=== PATIENT | male | born 1960 | race Caucasian/White ===

== ENCOUNTER 2021-12-10 00:13 | Day surgery (SDC) | payer OTHER, SELFPAY ==
[2021-11-30 15:08] VITALS: BMI 39.5
--- NOTE | 2021-12-09 13:35 | WPDANESEPPF ---
Anes - Initial Pre Proc Eval Procedure: Operation Date: 12/10/21 08:00 Proposed Procedures p Screening Colonoscopy - Michael Kumar MD Date/Time: 12/09/21 13:35 Surgeon: Michael Kumar MD Pre Op Diagnosis: neoplasm screening Patient Data Age: 61 Gender: M Height: 1.78 m Weight: 125 kg Allergies Allergy/AdvReac Type Severity Reaction Status Date / Time No Known Allergies Verified 12/10/21 06:45 Home Medications Medication Instructions Recorded Confirmed Type aspirin 81 mg tablet,delayed 81 mg PO DAILY 01/08/20 12/10/21 History release zmgdflxa-ehg-vaznj acid 0.4 1 tablet PO DAILY 01/08/20 12/10/21 History mg-lycopene 300 mcg-lutein 250 mcg tablet omega 4-ppn-xov-fish oil 60 mg-90 2 cap PO DAILY 01/08/20 12/10/21 History mg-500 mg capsule metoprolol succinate 50 mg 50 mg PO DAILY #90 tablet 01/25/21 12/10/21 Rx tablet,extended release 24 hr levothyroxine 100 mcg tablet 100 mcg PO DAILY #90 tablet 01/27/21 12/10/21 Rx tadalafil 10 mg tablet 20 mg PO DAILY PRN #30 tablet 04/07/21 12/10/21 Rx sodium bicarbonate 650 mg tablet See Rx Instructions .ROUTE 08/24/21 12/10/21 Rx .COMPLEX #90 tablet lisinopril 40 mg tablet 40 mg PO DAILY #90 tablet 10/05/21 12/10/21 Rx atorvastatin 20 mg PO DAILY 11/30/21 12/10/21 History Patient hx anesthesia problems: none Family hx anesthesia problems: none Results Review: All pre-operative results and documents have been reviewed as part of the pre-operative evaluation. [facility] Past Medical History Medical History (Updated 12/09/21 @ 13:35 by William Gonzalez DO) Essential (primary) hypertension Hypothyroidism (acquired) Mixed hyperlipidemia Surgical History Surgical History H/O hernia repair 1998 H/O hernia repair 2010 S/P cholecystectomy 2002 Family History Family History Grandparent Family history of malignant neoplasm Father Hypertension Mother Hypertension Social History Social History (Updated 11/23/21 @ 16:25 by Blanche Marsh [facility]) Smoking packs per day: 2 Smoking cigarettes per day: 40.0 Years smoked: 20 Smoking pack-years: 40.00 Tobacco type: cigarettes Alcohol intake: current Alcohol use details: Occasional Substance use: never Substance use type: does not use Living arrangements: with family Additional living arrangements comments: Spouse Additional occupation/education comments: [employer] Spiritual care concerns: No Anes - Eval Final PreProcedure Day of Procedure 12/09/21 13:35 Patient weight: obese Heart: regular rate and rhythm Lungs: clear to auscultation and normal air movement Airway: Mallampati scale class II Neurological: alert and oriented Last oral intake: >/= 8 hours ASA classification: III Emergent: no Anesthetic plan: proceed Anesthesia type and monitoring: general GIVS and standard monitoring Results Review: All pre-operative results and documents have been reviewed as part of the pre-operative evaluation. Informed Consent: The patient's anesthetic plan and its attendant risks and benefits were discussed with the patient/family/POA. Questions were solicited and answers provided to the satisfaction of the patient/family/POA.
[2021-12-10 06:43] VITALS: BP 162/65; PULSE 67; RESP 18; TEMP 36.4; O2SAT 96; BMI 41.8
[2021-12-10] MEDS: LACTATED RINGERS 1,000 ML 150 ML IV CONT (07:08)
--- NOTE | 2021-12-10 07:33 | WPDGICN ---
Assessment and Plan Assessment and plan (1) Encounter for screening colonoscopy: Code(s): Z12.11 - Encounter for screening for malignant neoplasm of colon Status: Acute Assessment and Plan: Patient presents today for screening colonoscopy. Further recommendations will be given after endoscopy. GI Consult Note Consult date/time: 12/10/21 07:33 HPI: Abhinav Mora is a 61 year old male Presents for screening colonoscopy. Patient's current weight appetite bowel movements are normal. He denies abdominal pain. He has had no bleeding. Family history noncontributory. Patient's last colonoscopy was least 15 years ago. He presents today for neoplasia screening. Review of Systems Review of Systems: All systems reviewed & are unremarkable except as noted in HPI and below PMFSH Past Medical History Medical History (Updated 12/10/21 @ 07:34 by Michael Kumar MD) Essential (primary) hypertension Hypothyroidism (acquired) Mixed hyperlipidemia Surgical History Surgical History H/O hernia repair 1998 H/O hernia repair 2010 S/P cholecystectomy 2002 Family History Family History Grandparent Family history of malignant neoplasm Father Hypertension Mother Hypertension Social History Social History (Updated 11/23/21 @ 16:25 by Blanche Marsh CMA) Smoking packs per day: 2 Smoking cigarettes per day: 40.0 Years smoked: 20 Smoking pack-years: 40.00 Tobacco type: cigarettes Alcohol intake: current Alcohol use details: Occasional Substance use: never Substance use type: does not use Living arrangements: with family Additional living arrangements comments: Spouse Additional occupation/education comments: [employer]. Spiritual care concerns: No Meds Home Medications and Allergies Home Medications Medication Instructions Recorded Confirmed Type aspirin 81 mg tablet,delayed 81 mg PO DAILY 01/08/20 12/10/21 History release otmnddyw-jxa-xywzg acid 0.4 1 tablet PO DAILY 01/08/20 12/10/21 History mg-lycopene 300 mcg-lutein 250 mcg tablet omega 0-vqp-del-fish oil 60 mg-90 2 cap PO DAILY 01/08/20 12/10/21 History mg-500 mg capsule metoprolol succinate 50 mg 50 mg PO DAILY #90 tablet 01/25/21 12/10/21 Rx tablet,extended release 24 hr levothyroxine 100 mcg tablet 100 mcg PO DAILY #90 tablet 01/27/21 12/10/21 Rx tadalafil 10 mg tablet 20 mg PO DAILY PRN #30 tablet 04/07/21 12/10/21 Rx sodium bicarbonate 650 mg tablet See Rx Instructions .ROUTE 08/24/21 12/10/21 Rx .COMPLEX #90 tablet lisinopril 40 mg tablet 40 mg PO DAILY #90 tablet 10/05/21 12/10/21 Rx atorvastatin 20 mg PO DAILY 11/30/21 12/10/21 History Allergies Allergy/AdvReac Type Severity Reaction Status Date / Time No Known Allergies Verified 12/10/21 06:45 Vital Signs Vital Signs - 24 hr 12/10/21 06:43 Temperature 97.5 F L Pulse Rate 67 Respiratory Rate 18 Blood Pressure 162/65 H Pulse Oximetry 96 Exam Narrative: Physical exam reveals patient be alert. Vital signs are stable. HEENT exam is unremarkable. Patient is anicteric. Lungs are clear to auscultation and percussion. Heart is without murmur or extra sounds. Abdomen bowel sounds are present soft nontender with no organomegaly. Digital external rectal exam is normal.
[2021-12-10 08:25] VITALS: BP 140/74; PULSE 74; RESP 16; O2SAT 92
[2021-12-10 08:35] VITALS: BP 125/74; PULSE 68; RESP 14; O2SAT 93
[2021-12-10 08:45] VITALS: BP 133/72; PULSE 69; RESP 13; O2SAT 96
== END 2021-12-10 08:52 | disposition home or self-care (01) ==
PROVIDERS: PCP Family Medicine; Visit Provider Internal Medicine Gastroenterology
PROC: 0DJD8ZZ Inspection of Lower Intestinal Tract, Via Natural or Artificial Opening Endoscopic (ICD-10-PCS; CPT 45378; principal; 2021-12-10 08:00)
DX: Z12.11 Encounter for screening for malignant neoplasm of colon (principal); E03.9 Hypothyroidism, unspecified; E78.2 Mixed hyperlipidemia; F17.210 Nicotine dependence, cigarettes, uncomplicated; Z79.82 Long term (current) use of aspirin; I10 Essential (primary) hypertension
CPT/HCPCS: 45378; J2704; J7120

== ENCOUNTER 2024-03-07 11:41 | Outpatient (CLI) | payer OTHER, SELFPAY ==
[2024-03-07 14:33] LABS: Prostate Specific Antigen 0.6 ng/mL (< OR = 4.0); Total Triiodothyronine (T3) 1.08 NG/ML (0.97-1.69)
[2024-03-07 14:41] LABS: Free T4 Free Thyroxine 0.98 ng/mL (0.78-2.19)
== END 2024-03-07 11:42 | disposition home or self-care (01) ==
LOC: ANHGOSHLAB 11:42
PROVIDERS: PCP Emergency Medicine; Visit Provider Emergency Medicine
DX: Z12.5 Encounter for screening for malignant neoplasm of prostate (principal); E03.9 Hypothyroidism, unspecified
CPT/HCPCS: 36415; 84153; 84439; 84443; 84480; G0103

== ENCOUNTER 2024-08-01 08:00 | Outpatient (RCR) | payer OTHER, SELFPAY ==
--- NOTE | 2024-08-01 08:52 | PTOPEVDC ---
Assessment and note entered by Mag Chavis, PT, DPT Thank you for referring Abhinav Mora to [facility].? An evaluation has been completed. No further treatment is needed. Evaluation Information Assessment Status Evaluation Diagnosis R knee pain ICD-10 Condition Codes (PT) M25.561 Subjective Information Pt states he is waiting to get his knee replaced. He states he needs to loose weight in order to get approved for his procedure. He states he has mild to moderate knee pain all the time. He states he gets increased pain when he is less mobile, or too mobile. He states he is favoring his R side and is starting to get L hip pain. Pt is retired. Reported Pain Level Pain Score 3: Self Report Assessment PT Clinical Summary Pt evaluated today with a diagnosis of R knee pain , he is awaiting a TKA. He demonstrate good gross and functional strength with pain reports being the only limitations. He demonstrates 0-6-115 deg of ROM. He was education in a HEP to complete until he can get approved for his knee replacement . He will complete his HEP independently. Plan of Care Interventions Therapeutic Activities,Therapeutic Exercise PT Services Indicated No Treatment Frequency and eval and d/c Duration
== END 2024-08-02 13:31 | disposition home or self-care (01) ==
LOC: ANHGOSHPT 08:00
PROVIDERS: PCP Emergency Medicine; Visit Provider Emergency Medicine
DX: M17.11 Unilateral primary osteoarthritis, right knee (principal)
CPT/HCPCS: 97110; 97161

== ENCOUNTER 2024-12-27 09:47 | Outpatient (CLI) | payer OTHER, SELFPAY ==
--- OUTSIDE RECORDS SUMMARY | 2024-12-27 10:34 | XMS_ITS | Clinical Summary ---
Author Organization [facility] Address [address] [facility] [place] [address] Care Team Providers Care Global Lead Name Role Phone Adilson Castelan MD Primary Care Provider [phone] Allergies No known active allergies Medications lisinopril-hydr oCHLOROthiazide (ZESTORETIC) 10-12.5 mg tablet Take 1 Tablet by mouth daily. 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 Active simvastatin (ZOCOR) 20 mg tablet Take 20 mg by mouth late in the day. Active metoprolol succinate (TOPROL XL) 50 mg Extended Release 24 hour tablet Take 50 mg by mouth daily. Active omega-3 fatty acids-fish oil 300-1,000 mg Capsule Take 2 Capsules by mouth daily. Active glucosamine-cho ndroitin (ARTHX DS) 500-400 mg Capsule Take 2 Capsules by mouth daily. Active multivitamin (DAILY-GLORIA) tablet Take 1 Tablet by mouth daily. Active aspirin (ECOTRIN EC) 81 mg Tablet, Delayed Release (E.C.) Take 81 mg by mouth daily. Active Active Problems Problem Noted Date Diagnosed Date Leukemoid reaction 08/10/2017 Obesity (BMI 35.0-39.9 without comorbidity) 07/22 Family History Medical History Relation Name Comments Healthy Brother No Known Problems Father No Known Problems Mother Healthy Sister 1 Healthy Sister 2 Relation Name Status Comments Brother Alive Father Alive Mother Alive Sister 1 Alive Sister 2 Alive Social History Tobacco Use Types Packs/Day Years Used Date Smoking Tobacco: Former Cigarettes 2 20 0 08/10/1979 - 08/10/1999 Alcohol Use Standard Drinks/Week Comments Yes 0 (1 standard drink = 0.6 oz pur e alcohol) occasional Sex and Gender Information Value Date Recorded Sex Assigned at Not on file Legal Sex Male 3:18 PM CDT Gender Identity Not on file Sexual Orientation Not on file Last Filed Vital Signs Vital Sign Reading Time Taken Comments Blood Pressure 178/78 08/23/2017 3:35 PM CDT Pulse 67 08/23/2017 3:35 PM CDT Temperature 37 C (98.6 F) 08/23/2017 3:35 PM CDT Respiratory Rate 18 08/23/2017 3:35 PM CDT Oxygen Saturation - - Inhaled Oxygen Concentration - - Weight 138 kg (304 lb 3.2 oz) 08/23/2017 3:35 PM CDT Height 177.8 cm (5' 10 ) 08/23/2017 3:35 PM CDT Body Mass Index 43.65 08/23/2017 3:35 PM CDT Plan of Treatment Health Maintenance Due Date Last Done Comments DTAP/TDAP/TD VACCINES (1 - Tdap) 1978 COLORECTAL SCREENING 2004 Colorectal Cancer Screening 2004 FIT-DNA Q 3 years 2004 FIT/FOBT Q 1 year 2004 Flex Sig/CT Colonography Q 5 years 2004 PNEUMOCOCCAL VACCINE 65+ YEARS (1 of 1 - PCV) 06/16/20 09 ZOSTER VACCINE (1 of 2) 2009 INFLUENZA VACCINE (#1) 2024 RSV VACCINE (60+ or ) (1 - 1-dose 75+ series) 2034 Insurance [facility] [id number] Care Teams Global Lead Relationship Specialty Start Date End Date Adilson Castelan MD [address] [place] [phone] PCP - General Family Practice 08/10/17
[2024-12-27 13:54] LABS: Hematocrit 44.9 % (42.0-52.0); Hemoglobin 15.3 g/dL (14.0-18.0); Mean Corpuscular HGB Conc 34.1 g/dl (32-36); Mean Corpuscular Hemoglobin 31.2 pg (26-34); Mean Corpuscular Volume 91.4 fl (80-100); Mean Platelet Volume 9.6 fl (7.4-10.4); Platelet Count Result 284 k/mm3 (150-375); Red Blood Count 4.91 M/mm3 (4.6-6.20); White Blood Count 13.1 K/mm3 (4.5-10.0)
[2024-12-27 14:29] LABS: Alanine Aminotransferase 20 U/L (6-50); Albumin Level 4.3 g/dL (3.5-5.1); Alkaline Phosphatase 46 U/L (38-126); Anion Gap 7 mmol/L (4-12); Aspartate Amino Transferase 32 U/L (17-59); Bilirubin,Total 0.8 mg/dL (0.2-1.3); Blood Urea Nitrogen 12 mg/dL (9-20); Calcium 8.9 mg/dL (8.4-10.2); Carbon Dioxide 31 mmol/L (22-30); Chloride 92 mmol/L (98-107); Cholesterol 132 mg/dL (0-200); Estimated Glomerular Filt Rate > 60; Glucose 83 mg/dL (65-110); HDL Direct 39 mg/dL; Potassium 4.5 mmol/L (3.4-5.0); Sodium 130 mmol/L (137-145); Triglycerides 90 mg/dL (<150)
[2024-12-27 14:39] LABS: LDL Cholesterol Direct 79 mg/dL
[2024-12-27 14:59] LABS: Prostate Specific Antigen 0.7 ng/mL (< OR = 4.0)
[2024-12-27 15:03] LABS: Hemoglobin A1C 5.3 % (<5.7)
== END 2024-12-27 09:48 | disposition home or self-care (01) ==
LOC: ANHGOSHLAB 09:48
PROVIDERS: PCP Nurse Practitioner Family; Visit Provider Nurse Practitioner Family
DX: E78.2 Mixed hyperlipidemia (principal); I10 Essential (primary) hypertension; R73.03 Prediabetes; E03.9 Hypothyroidism, unspecified; E66.9 Obesity, unspecified; Z68.38 Body mass index [BMI] 38.0-38.9, adult; H93.19 Tinnitus, unspecified ear; H91.90 Unspecified hearing loss, unspecified ear; M17.11 Unilateral primary osteoarthritis, right knee; M17.12 Unilateral primary osteoarthritis, left knee; L40.8 Other psoriasis
CPT/HCPCS: 36415; 80053; 80061; 83036; 84153; 84443; 85027; G0103

== ENCOUNTER 2024-12-31 12:46 | Outpatient (CLI) | payer OTHER, SELFPAY ==
--- OUTSIDE RECORDS SUMMARY | 2024-12-31 13:32 | XMS_ITS | Clinical Summary ---
Author Organization [facility] Address [address] [place] [address] Care Team Providers Care Hand Tube Winder Name Role Phone Adilson Castelan MD Primary Care Provider [phone] Allergies No known active allergies Medications lisinopril-hydr oCHLOROthiazide (ZESTORETIC) 10-12.5 mg tablet Take 1 Tablet by mouth daily. 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
== END 2024-12-31 12:47 | disposition home or self-care (01) ==
LOC: ANHAUDASC 12:47
PROVIDERS: PCP Nurse Practitioner Family; Visit Provider Nurse Practitioner Family
DX: H93.13 Tinnitus, bilateral (principal); H90.3 Sensorineural hearing loss, bilateral
CPT/HCPCS: 92557; 92567

== ENCOUNTER 2025-01-23 07:01 | Outpatient (CLI) | payer OTHER, SELFPAY ==
--- NOTE | ~2025-01-23 | US_ITS ---
EXAMINATION: US aorta [facility] DATE: 01/23/2025 07:57 INDICATION: Abdominal aortic aneurysm screening. TECHNIQUE: Grayscale, color Doppler, and pulsed Doppler images of the aorta and common iliac arteries were obtained. COMPARISON: CT abdomen 10/02/2004 FINDINGS: The aorta is normal in caliber. The right common iliac artery is normal in caliber. The left common i liac artery is normal in caliber. IMPRESSION: 1. No abdominal aortic aneurysm. 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
--- OUTSIDE RECORDS SUMMARY | 2025-01-23 07:04 | XMS_ITS | Clinical Summary ---
Author Organization [facility] Address [address] [place] [address] Care Team Providers Care Edge Beader Name Role Phone Adilson Castelan MD Primary Care Provider [phone] Allergies No known active allergies Medications lisinopril-hydr oCHLOROthiazide (ZESTORETIC) 10-12.5 mg tablet Take 1 Tablet by mouth daily. 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 Active simvastatin (ZOCOR) 20 mg tablet Take [...] Colonography Q 5 years 2004 PNEUMOCOCCAL VACCINE 50+ YEARS (1 of 1 - PCV) 06/16/20 09 ZOSTER VACCINE (1 of 2) 2009 INFLUENZA VACCINE (#1) 2024 RSV VACCINE (60+ or ) (1 - 1-dose 75+ series) 2034 Insurance [facility] [id number] Care Teams Edge Beader Relationship Specialty Start Date End Date Adilson Castelan MD [address] [place] [phone] PCP - General Family Practice 08/10/17
== END 2025-01-23 07:02 | disposition home or self-care (01) ==
PROVIDERS: PCP Nurse Practitioner Family; Visit Provider Nurse Practitioner Family
DX: Z87.891 Personal history of nicotine dependence (principal)
CPT/HCPCS: 76706

== ENCOUNTER 2025-03-27 13:50 | Outpatient (CLI) | payer OTHER, SELFPAY ==
--- NOTE | ~2025-03-27 | XR_ITS ---
XR knee RT min 4V Ordering provider: Angelique Post APRN History: . M17.0 - Bilateral primary osteoarthritis of knee . Comparison: None. FINDINGS: BONES: No acute fracture or dislocation. JOINT SPACES: Moderate Narrowing of the medial compartment. Marginal osteophytes are noted. SOFT TISSUES: Normal. IMPRESSION: No acute osseous abnormality right knee. Moderate to severe osteoarthritic changes. Reviewed, dictated and finalized at location A.
--- OUTSIDE RECORDS SUMMARY | 2025-03-27 13:58 | XMS_ITS | Clinical Summary ---
Author Organization [facility] Address [address] [place] [address] Care Team Providers Care Screen Printing Loader Unloader Name Role Phone Adilson Castelan MD Primary Care Provider [phone] Allergies No known active allergies Medications lisinopril-hydr oCHLOROthiazide (ZESTORETIC) 10-12.5 mg tablet Take 1 Tablet by mouth daily. 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 Active simvastatin (ZOCOR) 20 mg tablet Take [...] (1 - 1-dose 75+ series) 2034 Insurance [facility] [id number] Care Teams Screen Printing Loader Unloader Relationship Specialty Start Date End Date Adilson Castelan MD [address] [place] [phone] PCP - General Family Practice 08/10/17
== END 2025-03-27 13:51 | disposition home or self-care (01) ==
PROVIDERS: PCP Nurse Practitioner Family; Visit Provider Nurse Practitioner Family
DX: M17.0 Bilateral primary osteoarthritis of knee (principal)
CPT/HCPCS: 73564

== ENCOUNTER 2025-04-08 14:25 | Outpatient (CLI) | payer OTHER, SELFPAY ==
--- OUTSIDE RECORDS SUMMARY | 2025-04-08 14:30 | XMS_ITS | Clinical Summary ---
Author Organization [facility] Address [address] [place] [address] Care Team Providers Care Field Collector Name Role Phone Adilson Castelan MD Primary Care Provider [phone] Allergies No known active allergies Medications lisinopril-hydr oCHLOROthiazide (ZESTORETIC) 10-12.5 mg tablet Take 1 Tablet by mouth daily. 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 Active simvastatin (ZOCOR) 20 mg tablet Take [...] (1 - 1-dose 75+ series) 2034 Insurance [facility] [id number] Care Teams Field Collector Relationship Specialty Start Date End Date Adilson Castelan MD [address] [place] [phone] PCP - General Family Practice 08/10/17
== END 2025-04-08 14:26 | disposition home or self-care (01) ==
LOC: ANHGOSHLAB 14:26
PROVIDERS: PCP Nurse Practitioner Family; Visit Provider Nurse Practitioner Family
DX: Z01.83 Encounter for blood typing (principal)
CPT/HCPCS: 36415; 86900; 86901

== ENCOUNTER 2025-04-17 00:58 | Day surgery (SDC) | payer OTHER, SELFPAY ==
[2025-04-07 13:18] VITALS: BMI 36.6
--- OUTSIDE RECORDS SUMMARY | 2025-04-17 01:02 | XMS_ITS | Clinical Summary ---
Author Organization [facility] Address [address] [place] [address] Care Team Providers Care Concrete Mixer Name Role Phone Adilson Castelan MD Primary Care Provider [phone] Allergies No known active allergies Medications lisinopril-hydr oCHLOROthiazide (ZESTORETIC) 10-12.5 mg tablet Take 1 Tablet by mouth daily. 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 Active simvastatin (ZOCOR) 20 mg tablet Take [...] 3:35 PM CDT Height 177.8 cm (5' 10) 08/23/2017 3:35 PM CDT Body Mass Index [...] - 1-dose 75+ series) 2034 Insurance [facility] [id number] Care Teams Concrete Mixer Relationship Specialty Start Date End Date Adilson Castelan MD [address] [place] [phone] PCP - General Family Practice 08/10/17
[2025-04-17 06:17] VITALS: BP 147/64; PULSE 54; RESP 20; TEMP 36.7; O2SAT 96; BMI 37.0
[2025-04-17] MEDS: LACTATED RINGERS 1,000 ML 150 ML IV CONT (06:31)
--- NOTE | 2025-04-17 07:15 | P.PNAN_ITS ---
Anes - Initial Pre Proc Eval Procedure: Operation Date: 04/17/25 07:30 Proposed Procedures p Colonoscopy - uLdin Rader MD Date/Time: 04/17/25 07:15 Surgeon: Ludin Rader MD Pre Op Diagnosis: Personal hx of colon polyps Patient Data Age: 64 Gender: M Height: 1.78 m Weight: 117 kg Last Vital Signs Temp 98.0 F 04/17/25 06:17 Pulse 54 L 04/17/25 06:17 Resp 20 04/17/25 06:17 BP 147/64 H 04/17/25 06:17 Pulse Ox 96 04/17/25 06:17 O2 Del Method Room Air 04/17/25 06:17 Allergies Allergy/AdvReac Type Severity Reaction Status Date / Time No Known Allergies Allergy Verified 04/17/25 06:22 Home Medications ?Medication ?Instructions ?Recorded ?Confirmed ?Type aspirin 81 mg tablet,delayed 81 mg PO DAILY 01/08/20 04/17/25 History release (Adult Low Dose Aspirin) aufjjysl-rrv-nyyvt acid 0.4 1 tablet PO DAILY 01/08/20 04/17/25 History mg-lycopene 300 mcg-lutein 250 mcg tablet (Centrum Silver) omega 7-mag-gsg-fish oil 60 mg-90 2 cap PO DAILY 01/08/20 04/17/25 History mg-500 mg capsule (Fish Oil) lisinopril 40 mg tablet 40 mg PO DAILY #90 tabs 09/30/24 04/17/25 Rx tirzepatide (weight loss) 15 15 mg (0.5 mL) subcut WEEKLY #2 mL 12/02/24 04/07/25 Rx mg/0.5 mL subcutaneous pen injector (Zepbound) levothyroxine 100 mcg tablet See Rx Instructions .Route 12/26/24 04/17/25 Rx .COMPLEX #90 tabs atorvastatin 20 mg tablet See Rx Instructions .Route 01/20/25 04/17/25 Rx .COMPLEX #90 tabs metoprolol succinate 50 mg See Rx Instructions .Route 01/20/25 04/17/25 Rx tablet,extended release 24 hr .COMPLEX #90 tabs meloxicam 15 mg tablet 15 mg PO DAILY #90 tabs 02/18/25 04/17/25 Rx amlodipine 10 mg tablet 10 mg PO DAILY #90 tabs 03/27/25 04/17/25 Rx Patient hx anesthesia problems: none Family hx anesthesia problems: none Results Review: All pre-operative results and documents have been reviewed as part of the pre- operative evaluation. [facility] Past Medical History Medical History Left knee DJD Primary osteoarthritis of right knee Encounter for weight management Subcutaneous cyst Sebaceous cyst [place] Osteoarthritis of right knee Screening for prostate cancer Renal function impairment with nsaids Encounter for screening colonoscopy Hyponatremia Morbid obesity with BMI of 40.0-44.9, adult Morbid (severe) obesity due to excess calories Elevated glucose level History of stress test Essential (primary) hypertension Hypothyroidism (acquired) Mixed hyperlipidemia Surgical History Surgical History S/P cholecystectomy (~2002) H/O hernia repair (~2010) H/O hernia repair (~1998) Family History Family History Grandparent Family history of malignant neoplasm Father Hypertension Mother Hypertension Social History Social History Social History: Caffeine-soda Smoking packs per day: 2 Smoking cigarettes per day: 40.0 Years smoked: 20 Smoking pack-years: 40.00 Smoking status: Former smoker Tobacco type: cigarettes Smoking end date: 11/20/98 Alcohol intake: current Drinks per week: 1 Alcohol use details: Occasional Substance use: former Substance use type: does not use Other substance usage details: Gummies Do You Feel Safe in your Home?: Yes Lack of Transportation: No Lack of Food: Never True Current Housing: I Have Housing Concerned About Future Housing: No Difficulty Paying Gas/Electric Bills: No Difficulty Paying for Meds: No Currently Unemployed: No Education: High School Diploma/GED Difficulty w/ Childcare or Family Care: No Living arrangements: with family Additional living arrangements comments: Spouse Occupation/Education: occupation Additional occupation/education comments: [employer] Spiritual care concerns: No Anes - Eval Final PreProcedure Day of Procedure 04/17/25 07:15 Patient weight: obese Heart: regular rate and rhythm Lungs: clear to auscultation Airway: Mallampati scale class II Neurological: alert and oriented Last oral intake: >/= 8 hours ASA classification: III Emergent: no Anesthetic plan: proceed Anesthesia type and monitoring: general GIVS and standard monitoring Results Review: All pre-operative results and documents have been reviewed as part of the pre- operative evaluation. Informed Consent: The patient's anesthetic plan and its attendant risks and benefits were discussed with the patient/family/POA. Questions were solicited and answers p rovided to the satisfaction of the patient/family/POA.
--- NOTE | 2025-04-17 07:17 | WPDANESEPPF ---
Anes - Initial Pre Proc Eval Procedure: Operation Date: 04/17/25 07:30 Proposed Procedures p Colonoscopy - Ludin Rader MD Date/Time: 04/17/25 07:17 Surgeon: Ludin Rader MD Pre Op Diagnosis: Personal hx of colon polyps Patient Data Age: 64 Gender: M Height: 1.78 m Weight: 117 kg Last Vital Signs Temp 98.0 F 04/17/25 06:17 Pulse 54 L 04/17/25 06:17 Resp 20 04/17/25 06:17 BP 147/64 H 04/17/25 06:17 Pulse Ox 96 04/17/25 06:17 O2 Del Method Room Air 04/17/25 06:17 Allergies Allergy/AdvReac Type Severity Reaction Status Date / Time No Known Allergies Allergy Verified 04/17/25 06:22 Home Medications ?Medication ?Instructions ?Recorded ?Confirmed ?Type aspirin 81 mg tablet,delayed 81 mg PO DAILY 01/08/20 04/17/25 History release (Adult Low Dose Aspirin) ihxjmktw-yrr-uwgfc acid 0.4 1 tablet PO DAILY 01/08/20 04/17/25 History mg-lycopene 300 mcg-lutein 250 mcg tablet (Centrum Silver) omega 6-cap-euv-fish oil 60 mg-90 2 cap PO DAILY 01/08/20 04/17/25 History mg-500 mg capsule (Fish Oil) lisinopril 40 mg tablet 40 mg PO DAILY #90 tabs 09/30/24 04/17/25 Rx tirzepatide (weight loss) 15 15 mg (0.5 mL) subcut WEEKLY #2 mL 12/02/24 04/07/25 Rx mg/0.5 mL subcutaneous pen injector (Zepbound) levothyroxine 100 mcg tablet See Rx Instructions .Route 12/26/24 04/17/25 Rx .COMPLEX #90 tabs atorvastatin 20 mg tablet See Rx Instructions .Route 01/20/25 04/17/25 Rx .COMPLEX #90 tabs metoprolol succinate 50 mg See Rx Instructions .Route 01/20/25 04/17/25 Rx tablet,extended release 24 hr .COMPLEX #90 tabs meloxicam 15 mg tablet 15 mg PO DAILY #90 tabs 02/18/25 04/17/25 Rx amlodipine 10 mg tablet 10 mg PO DAILY #90 tabs 03/27/25 04/17/25 Rx Patient hx anesthesia problems: none Family hx anesthesia problems: none Results Review: All pre-operative results and documents have been reviewed as part of the pre-operative evaluation. [facility] Past Medical History Medical History Left knee DJD Primary osteoarthritis of right knee Encounter for weight management Subcutaneous cyst Sebaceous cyst [place] Osteoarthritis of right knee Screening for prostate cancer Renal function impairment with nsaids Encounter for screening colonoscopy Hyponatremia Morbid obesity with BMI of 40.0-44.9, adult Morbid (severe) obesity due to excess calories Elevated glucose level History of stress test Essential (primary) hypertension Hypothyroidism (acquired) Mixed hyperlipidemia Surgical History Surgical History S/P cholecystectomy (~2002) H/O hernia repair (~2010) H/O hernia repair (~1998) Family History Family History Grandparent Family history of malignant neoplasm Father Hypertension Mother Hypertension Social History Social History Social History: Caffeine-soda Smoking packs per day: 2 Smoking cigarettes per day: 40.0 Years smoked: 20 Smoking pack-years: 40.00 Smoking status: Former smoker Tobacco type: cigarettes Smoking end date: 11/20/98 Alcohol intake: current Drinks per week: 1 Alcohol use details: Occasional Substance use: former Substance use type: does not use Other substance usage details: Gummies Do You Feel Safe in your Home?: Yes Lack of Transportation: No Lack of Food: Never True Current Housing: I Have Housing Concerned About Future Housing: No Difficulty Paying Gas/Electric Bills: No Difficulty Paying for Meds: No Currently Unemployed: No Education: High School Diploma/GED Difficulty w/ Childcare or Family Care: No Living arrangements: with family Additional living arrangements comments: Spouse Occupation/Education: occupation Additional occupation/education comments: [employer] Spiritual care concerns: No Anes - Eval Final PreProcedure Day of Procedure 04/17/25 07:17 Patient weight: normal Heart: regular rate and rhythm Lungs: clear to auscultation Neurological: alert and oriented Last oral intake: >/= 8 hours Emergent: no Anesthetic plan: proceed Results Review: All pre-operative results and documents have been reviewed as part of the pre-operative evaluation. Informed Consent: The patient's anesthetic plan and its attendant risks and benefits were discussed with the patient/family/POA. Questions were solicited and answers provided to the satisfaction of the patient/family/POA.
--- NOTE | 2025-04-17 07:20 | PM.IMHP ---
H&P: HPI History of Present Illness Date/Time: 04/17/25 07:20 Chief Complaint: Screening colonoscopy Narrative: This is the patient's first colonoscopy. apparently 5 years ago an attempt was made but the patient was not completely prepped. There are no GI symptoms and there is no family history of colorectal cancer. Review of Systems Review of Systems: All systems reviewed & are unremarkable except as noted in HPI and below PMFSH Past Medical History Medical History Left knee DJD Primary osteoarthritis of right knee Encounter for weight management Subcutaneous cyst Sebaceous cyst [place] Osteoarthritis of right knee Screening for prostate cancer Renal function impairment with nsaids Encounter for screening colonoscopy Hyponatremia Morbid obesity with BMI of 40.0-44.9, adult Morbid (severe) obesity due to excess calories Elevated glucose level History of stress test Essential (primary) hypertension Hypothyroidism (acquired) Mixed hyperlipidemia Surgical History Surgical History S/P cholecystectomy (~2002) H/O hernia repair (~2010) H/O hernia repair (~1998) Family History Family History Grandparent Family history of malignant neoplasm Father Hypertension Mother Hypertension Social History Social History Social History: Caffeine-soda Smoking packs per day: 2 Smoking cigarettes per day: 40.0 Years smoked: 20 Smoking pack-years: 40.00 Smoking status: Former smoker Tobacco type: cigarettes Smoking end date: 11/20/98 Alcohol intake: current Drinks per week: 1 Alcohol use details: Occasional Substance use: former Substance use type: does not use Other substance usage details: Gummies Do You Feel Safe in your Home?: Yes Lack of Transportation: No Lack of Food: Never True Current Housing: I Have Housing Concerned About Future Housing: No Difficulty Paying Gas/Electric Bills: No Difficulty Paying for Meds: No Currently Unemployed: No Education: High School Diploma/GED Difficulty w/ Childcare or Family Care: No Living arrangements: with family Additional living arrangements comments: Spouse Occupation/Education: occupation Additional occupation/education comments: [employer] Spiritual care concerns: No Meds Home Medications and Allergies Home Medications ?Medication ?Instructions ?Recorded ?Confirmed ?Type aspirin 81 mg tablet,delayed 81 mg PO DAILY 01/08/20 04/17/25 History release (Adult Low Dose Aspirin) pfklitgx-gvt-txusy acid 0.4 1 tablet PO DAILY 01/08/20 04/17/25 History mg-lycopene 300 mcg-lutein 250 mcg tablet (Centrum Silver) omega 3-scz-jsu-fish oil 60 mg-90 2 cap PO DAILY 01/08/20 04/17/25 History mg-500 mg capsule (Fish Oil) lisinopril 40 mg tablet 40 mg PO DAILY #90 tabs 09/30/24 04/17/25 Rx tirzepatide (weight loss) 15 15 mg (0.5 mL) subcut WEEKLY #2 mL 12/02/24 04/07/25 Rx mg/0.5 mL subcutaneous pen injector (Zepbound) levothyroxine 100 mcg tablet See Rx Instructions .Route 12/26/24 04/17/25 Rx .COMPLEX #90 tabs atorvastatin 20 mg tablet See Rx Instructions .Route 01/20/25 04/17/25 Rx .COMPLEX #90 tabs metoprolol succinate 50 mg See Rx Instructions .Route 01/20/25 04/17/25 Rx tablet,extended release 24 hr .COMPLEX #90 tabs meloxicam 15 mg tablet 15 mg PO DAILY #90 tabs 02/18/25 04/17/25 Rx amlodipine 10 mg tablet 10 mg PO DAILY #90 tabs 03/27/25 04/17/25 Rx Allergies Allergy/AdvReac Type Severity Reaction Status Date / Time No Known Allergies Allergy Verified 04/17/25 06:22 Vital Signs Vital Signs - 24 hr 04/17/25 06:17 Temperature 98.0 F Pulse Rate 54 L Respiratory Rate 20 Blood Pressure 147/64 H Pulse Oximetry 96 Oxygen Delivery Room Air Exam Const: General: cooperative and healthy appearing Resp: Effort & Inspection: normal respiratory effort and able to speak in complete sentences Auscultation: clear to auscultation bilaterally Cardio: Rate: regular rate Rhythm: regular rhythm GI: Inspection: normal to inspection GI Palp: No No hepatosplenomegaly present Auscultation: normal bowel sounds Rectal Exam: deferred Skin: General skin exam: normal color Psych: Appearance: grossly normal Mental Status: mental status grossly normal Assessment and Plan Assessment and plan (1) Encounter for screening colonoscopy: Code(s): Z12.11 - Encounter for screening for malignant neoplasm of colon Status: Acute Assessment and Plan: The patient is deemed a good candidate for the procedure. Consent signed. Will proceed.
[2025-04-17 07:40] VITALS: BP 103/54; PULSE 52; RESP 17; O2SAT 96
[2025-04-17 07:50] VITALS: BP 121/63; PULSE 50; RESP 15; O2SAT 95
[2025-04-17 08:00] VITALS: BP 127/67; PULSE 50; RESP 17; O2SAT 96
== END 2025-04-17 08:12 | disposition home or self-care (01) ==
PROVIDERS: PCP Nurse Practitioner Family; Referring Provider Nurse Practitioner Family; Visit Provider Internal Medicine Gastroenterology
PROC: 0DJD8ZZ Inspection of Lower Intestinal Tract, Via Natural or Artificial Opening Endoscopic (ICD-10-PCS; CPT 45378; principal; 2025-04-17 07:30)
DX: Z12.11 Encounter for screening for malignant neoplasm of colon (principal); Z53.8 Procedure and treatment not carried out for other reasons; E78.2 Mixed hyperlipidemia; E03.9 Hypothyroidism, unspecified; I10 Essential (primary) hypertension; E87.1 Hypo-osmolality and hyponatremia; M17.0 Bilateral primary osteoarthritis of knee; N28.9 Disorder of kidney and ureter, unspecified; F12.90 Cannabis use, unspecified, uncomplicated; E66.9 Obesity, unspecified; Z68.37 Body mass index [BMI] 37.0-37.9, adult; Z79.82 Long term (current) use of aspirin; Z79.85 Long-term (current) use of injectable non-insulin antidiabetic drugs; Z98.890 Other specified postprocedural states; Z90.49 Acquired absence of other specified parts of digestive tract; Z87.891 Personal history of nicotine dependence; Z86.0100 Personal history of colon polyps, unspecified; Z80.9 Family history of malignant neoplasm, unspecified
CPT/HCPCS: 45378; J2003; J2704; J7120

== ENCOUNTER 2025-08-13 09:28 | Outpatient (CLI) | payer OTHER, SELFPAY ==
--- OUTSIDE RECORDS SUMMARY | 2025-08-13 10:10 | XMS_ITS | Clinical Summary ---
Author Organization [facility] Address [address] [place] [address] Care Team Providers Care Castings Drafter Name Role Phone Adilson Castelan MD Primary Care Provider [phone] Allergies No known active allergies Medications lisinopril-hydr oCHLOROthiazide (ZESTORETIC) 10-12.5 mg tablet Take 1 Tablet by mouth daily. Active levothyroxine 100 mcg tablet Take 100 mcg by mouth daily applicator sprayer. Active simvastatin (ZOCOR) 20 mg tablet Take [...] (1 of 2) 2009 INFLUENZA VACCINE (#1) 2025 RSV VACCINE (60+ or ) (1 - 1-dose 75+ series) 2034 Insurance [facility] OPTIONS PPO [id number] Care Teams Castings Drafter Relationship Specialty Start Date End Date Adilson Castelan MD [address] [place] [place] [address] PCP - General Family Practice 08/10/17
[2025-08-13 18:54] LABS: Alanine Aminotransferase 20 U/L (6-50); Albumin Level 4.3 g/dL (3.5-5.1); Alkaline Phosphatase 51 U/L (38-126); Anion Gap 8 mmol/L (4-12); Aspartate Amino Transferase 46 U/L (17-59); Bilirubin,Total 0.7 mg/dL (0.2-1.3); Blood Urea Nitrogen 10 mg/dL (9-20); Calcium 9.2 mg/dL (8.4-10.2); Carbon Dioxide 28 mmol/L (22-30); Chloride 93 mmol/L (98-107); Cholesterol 144 mg/dL (0-200); Estimated Glomerular Filt Rate > 60; Glucose 89 mg/dL (65-110); HDL Direct 45 mg/dL; Potassium 4.5 mmol/L (3.4-5.0); Sodium 129 mmol/L (137-145); Total Protein 7.2 g/dL (6.3-8.2); Triglycerides 57 mg/dL (<150)
[2025-08-13 19:33] LABS: Hematocrit 45.5 % (42.0-52.0); Hemoglobin 15.4 g/dL (14.0-18.0); Mean Corpuscular HGB Conc 33.8 g/dl (32-36); Mean Corpuscular Hemoglobin 31.0 pg (26-34); Mean Corpuscular Volume 91.5 fl (80-100); Platelet Count Result 330 k/mm3 (150-375); Red Blood Count 4.97 M/mm3 (4.6-6.20); White Blood Count 11.0 K/mm3 (4.5-10.0)
[2025-08-13 19:47] LABS: Thyroid Stimulating Hormone Reflex 2.460 uIU/mL (0.465-4.68)
== END 2025-08-13 09:29 | disposition home or self-care (01) ==
LOC: ANHGOSHLAB 09:29
PROVIDERS: PCP Nurse Practitioner Family; Visit Provider Nurse Practitioner Family
DX: E78.2 Mixed hyperlipidemia (principal); I10 Essential (primary) hypertension; R73.03 Prediabetes; E03.9 Hypothyroidism, unspecified; E66.9 Obesity, unspecified; H93.13 Tinnitus, bilateral; H90.3 Sensorineural hearing loss, bilateral; M17.0 Bilateral primary osteoarthritis of knee; L20.9 Atopic dermatitis, unspecified
CPT/HCPCS: 36415; 80053; 80061; 84443; 85027

== ENCOUNTER 2025-09-05 10:12 | Outpatient (CLI) | payer OTHER, SELFPAY ==
--- NOTE | 2025-09-05 10:26 | ECG_ITS ---
Test Date: 2025-09-05 10:42:04 Measurements Intervals [place] Rate: 55 P: 51 VA: 164 QRS: 57 QRSD: 95 T: 40 QT: 429 QTc: 412 Interpretive Statements SINUS BRADYCARDIA DELAYED PRECORDIAL R/S TRANSITION BASELINE ARTIFACT- II, III, AVF BORDERLINE ECG No previous ECG available for comparison Electronically Signed On 09-05-2025 11:10:33 CDT by Sunny Mays D.O.
[2025-09-05 10:43] LABS: Hematocrit 44.1 % (42.0-52.0); Hemoglobin 15.0 g/dL (14.0-18.0)
[2025-09-05 10:52] LABS: Hemoglobin A1C 4.8 % (<5.7)
--- OUTSIDE RECORDS SUMMARY | 2025-09-05 10:52 | XMS_ITS | Clinical Summary ---
Author Organization [facility] Address [address] [place] [address] Care Team Providers Care Public Relations Sales Marketing Name Role Phone Adilson Castelan MD Primary Care Provider [phone] Allergies No known active allergies Medications lisinopril-hydr oCHLOROthiazide (ZESTORETIC) 10-12.5 mg tablet Take 1 Tablet by mouth daily. 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 Active simvastatin (ZOCOR) 20 mg tablet Take [...] (1 - 1-dose 75+ series) 2034 Insurance [facility] OPTIONS PPO [id number] Care Teams Public Relations Sales Marketing Relationship Specialty Start Date End Date Adilson Castelan MD [address] [place] [address] PCP - General Family Practice 08/10/17
[2025-09-05 10:53] LABS: Albumin Level 4.5 g/dL (3.5-5.1); Estimated Glomerular Filt Rate > 60; Glucose 98 mg/dL (65-110)
== END 2025-09-05 10:13 | disposition home or self-care (01) ==
PROVIDERS: PCP Nurse Practitioner Family; Visit Provider Orthopaedic Surgery
DX: Z01.818 Encounter for other preprocedural examination (principal); D72.829 Elevated white blood cell count, unspecified; R73.03 Prediabetes; I10 Essential (primary) hypertension; R94.31 Abnormal electrocardiogram [ECG] [EKG]; Z79.899 Other long term (current) drug therapy
CPT/HCPCS: 80307; 82040; 82565; 82947; 83036; 85014; 85018; 93005

== ENCOUNTER 2025-11-10 07:57 | Outpatient (CLI) | payer OTHER, SELFPAY ==
--- OUTSIDE RECORDS SUMMARY | 2025-11-10 08:07 | XMS_ITS | Clinical Summary ---
Author Organization [facility] Address [address] [place] [address] Care Team Providers Care Consumer Studies Professor Name Role Phone Adilson Castelan MD Primary Care Provider [phone] Allergies No known active allergies Medications lisinopril-hydr oCHLOROthiazide (ZESTORETIC) 10-12.5 mg tablet Take 1 Tablet by mouth daily. 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 Active simvastatin (ZOCOR) 20 mg tablet Take [...] (1 - 1-dose 75+ series) 2034 Insurance [facility] OPTIONS PPO [id number] Care Teams Consumer Studies Professor Relationship Specialty Start Date End Date Flip, Adilson Max, MD [address] [place] [address] PCP - General Family Practice 08/10/17
[2025-11-10 09:28] LABS: Hematocrit 43.5 % (42.0-52.0); Hemoglobin 15.1 g/dL (14.0-18.0); Immature Granulocyte Percent A 0.6 % (0-0.5); Lymphocytes Absolute Auto 1.59 K/mm3 (0.9-3.2); Mean Corpuscular HGB Conc 34.7 g/dl (32-36); Mean Corpuscular Hemoglobin 31.7 pg (26-34); Mean Corpuscular Volume 91.2 fl (80-100); Nucleated Red Blood Cells Absolute Auto 0.000 K/mm3 (0.0-0.012); Nucleated Red Blood Cells Perc 0.0 % (0.0-0.2); Platelet Count Result 277 k/mm3 (150-375); Red Blood Count 4.77 M/mm3 (4.6-6.20); White Blood Count 10.8 K/mm3 (4.5-10.0)
[2025-11-10 09:49] LABS: Albumin Level 4.4 g/dL (3.5-5.1); Estimated Glomerular Filt Rate > 60; Glucose 93 mg/dL (65-110)
[2025-11-10 10:35] LABS: MRSA (PCR) NOT DETECTED (NOT DETECTE)
== END 2025-11-10 07:58 | disposition home or self-care (01) ==
PROVIDERS: PCP Nurse Practitioner Family; Visit Provider Orthopaedic Surgery
DX: M17.11 Unilateral primary osteoarthritis, right knee (principal); Z01.818 Encounter for other preprocedural examination
CPT/HCPCS: 80307; 82040; 82565; 82947; 85025; 87641